=== PATIENT | male | born 1945 | race Caucasian/White ===

== ENCOUNTER 2022-02-07 16:02 | Emergency (ER) | payer MEDICARE ==
[~2022-02-07] VITALS: Ht 165.1 cm; Wt 81.0 kg
[2022-02-07 16:41] VITALS: BP 138/80
[2022-02-07] MEDS ORDERED: DIPHENHYDRAMINE 25MG CAPSULE PO ONE (17:45)
[2022-02-07] MEDS ORDERED: FAMOTIDINE 20MG TABLET PO ONE (17:45)
[2022-02-07] MEDS ORDERED: DEXAMETHASONE 10 MG/ML VIAL IM ONE (17:45)
[2022-02-07] MEDS ORDERED: MINE50OI TP (18:31)
[2022-02-07] MEDS ORDERED: PRED10TA MT (18:31)
[2022-02-07] MEDS ORDERED: FAMO-135 MT (18:31)
[2022-02-07] MEDS ORDERED: DIPH25TA62 MT (18:31)
== END 2022-02-07 18:51 | disposition home or self-care (01) ==
LOC: ER 16:02
DX: L25.9 Unspecified contact dermatitis, unspecified cause (principal); E11.9 Type 2 diabetes mellitus without complications; E03.9 Hypothyroidism, unspecified
CPT/HCPCS: 96372; 99283; J1100; Q0163

== ENCOUNTER 2022-05-02 15:22 | Emergency (ER) | payer OTHER, MEDICAID ==
[~2022-05-02] VITALS: Ht 175.3 cm; Wt 82.0 kg
[~2022-05-02 15:22] MED LIST: DIPH25TA62 MT; FAMO-135 MT; MINE50OI TP; PRED10TA MT
[2022-05-02 20:42] LABS: BASOPHILS % 0.4 % (0.0-2.0); EOSINOPHILS % 7.6 % (0.0-5.0); HEMATOCRIT. 35.6 % (42.0-52.0); HEMOGLOBIN. 12.1 g/dL (14.0-18.0); LYMPHOCYTES % 22.8 % (20.0-50.0); MEAN CORPUSCULAR VOLUME 88.5 fL (80.0-94.0); MEAN PLATELET VOLUME 7.9 fl (7.4-10.4); MONOCYTES % 8.1 % (2.0-8.0); NEUTROPHILS % 61.1 % (40.0-76.0); PLATELET 182 x1000/uL (130-400); RED BLOOD CELL COUNT 4.02 mill/uL (4.7-6.1); RED CELL DISTRIBUTION WIDTH 14.1 % (11.6-14.6)
[2022-05-02 20:49] LABS: CHLORIDE 100 mEq/L (98-107)
[2022-05-02 20:51] LABS: PROTHROMBIN TIME 10.6 sec (9.6-11.0)
[2022-05-03] MEDS ORDERED: ACETAMINOPHEN 325MG TABLET PO ONE (00:15)
[2022-05-03] MEDS ORDERED: IBUPROFEN 400MG TABLET PO ONE (00:15)
[2022-05-03] MEDS ORDERED: DIPHENHYDRAMINE 25MG CAPSULE PO ONE (00:15)
[2022-05-03] MEDS ORDERED: CALA177S9 TP (00:19)
[2022-05-03] MEDS ORDERED: IBUP-2028 MT (00:19)
[2022-05-03] MEDS ORDERED: TOPUD PO (00:19)
[2022-05-03] MEDS ORDERED: DIPH25CA83 MT (00:19)
[2022-05-03] MEDS ORDERED: MINE50OI TP (00:19)
[2022-05-03 00:38] VITALS: BP 121/61
== END 2022-05-03 01:54 | disposition home or self-care (01) ==
LOC: ER 15:22
DX: L25.9 Unspecified contact dermatitis, unspecified cause (principal); E11.9 Type 2 diabetes mellitus without complications; E05.90 Thyrotoxicosis, unspecified without thyrotoxic crisis or storm; Z79.899 Other long term (current) drug therapy
CPT/HCPCS: 36415; 71045; 74176; 80053; 83690; 85025; 85610; 99285; Q0163